=== PATIENT | female | born 1975 | race Caucasian/White ===

== ENCOUNTER 2017-07-30 | Emergency (ER) | payer MEDICARE ==
--- NOTE | 2017-07-30 01:10 | PDOC ---
History of Present Illness - General History Source: Patient Exam Limitations: No Limitations - History of Present Illness Initial Comments: 07/30/17 01:53 The patient is a 41-year-old female, with a significant past medical history of diabetes and colon cancer (in remission), who presents to the ED with right foot pain after hitting her foot against the couch today. Pts fourth and fifth digit appears to be bruised. She denies taking anything for pain. She denies having any other injuries or symptoms. Allergies: NKDA <Ilda Lobo - Last Filed: 07/30/17 01:53> <Caroline Huerta - Last Filed: 07/30/17 06:29> - General Stated Complaint: INJURY Time Seen by Provider: 07/30/17 01:10 Past History <Ilda Lobo - Last Filed: 07/30/17 01:53> - Past Medical History Anemia: No Asthma: No Cancer: Yes (COLON CANCER 2004) Cardiac Disorders: No CVA: No COPD: No CHF: No Dementia: No Diabetes: Yes GI Disorders: Yes (gastritis,gerd,gastroparesis syn..esophagitis,diaphragmatic hernia) Disorders: No HTN: No Hypercholesterolemia: Yes Liver Disease: Yes (non alcoholic fatty liver) Suicide Attempt (Hx): No Seizures: No Thyroid Disease: No - Surgical History Abdominal Surgery: Yes (RIGHT HEMICOLECTOMY) Appendectomy: No Cardiac Surgery: No Cholecystectomy: Yes Lung Surgery: No Neurologic Surgery: No Orthopedic Surgery: No - Immunization History Immunization Up to Date: No - Psycho/Social/Smoking Cessation Hx Anxiety: No Suicidal Ideation: No Smoking Status: No Smoking History: Never smoked Have you smoked in the past 12 months: No Number of Cigarettes Smoked Daily: 0 Hx Alcohol Use: No Drug/Substance Use Hx: No Substance Use Type: None Hx Substance Use Treatment: No <Caroline Huerta - Last Filed: 07/30/17 06:29> - Past Medical History Allergies/Adverse Reactions: Allergies Allergy/AdvReac Type Severity Reaction Status Date / Time shrimp Allergy Severe Swelling Verified 07/30/17 01:31 No Known Drug Allergies Allergy Verified 07/30/17 01:31 Home Medications: Ambulatory Orders Albuterol Sulfate Inhaler - [Ventolin Hfa Inhaler -] 1 - 2 inh PO QID 06/04/16 Albuterol Sulfate [Proair Respiclick] 90 mcg IH TID 06/04/16 Aspirin [ASA -] 81 mg PO DAILY 06/04/16 Fluconazole [Diflucan -] 100 mg PO DAILY 06/04/16 Gabapentin 100 mg PO TID 06/04/16 Hydrochlorothiazide 25 mg PO DAILY 06/04/16 Insulin Glulisine [Apidra Solostar] 100 unit SQ BID 06/04/16 Loratadine 10 mg PO DAILY 06/04/16 Niacin*ER* [Niaspan (Non-Formulary)*ER* -] 500 mg PO HS 06/04/16 Omeprazole 20 mg PO DAILY 06/04/16 Simvastatin 40 mg PO HS 06/04/16 Solifenacin Succinate [Vesicare -] 10 mg PO DAILY 06/04/16 Oxycodone HCl/Acetaminophen [Percocet 5/325 -] 1 tab PO Q6H #20 tablet MDD 4 08/07 Review of Systems - Review of Systems Able to Perform ROS?: Yes Comments:: 07/30/17 01:54 CONSTITUTIONAL: Absent: fever, no chills, no fatigue EYES: Absent: visual changes ENT: Absent: ear pain, no sore throat CARDIOVASCULAR: Absent: chest pain, no palpitations RESPIRATORY: Absent: cough, no SOB GI: Absent: abdominal pain, no nausea, no vomiting, no constipation, no diarrhea GENITOURINARY: Absent: dysuria, no frequency, no hematuria MUSKULOSKELETAL: Present: Right foot pain Absent: back pain, no arthralgia SKIN: Absent: rash NEURO: Absent: headache <Ilda Lobo - Last Filed: 07/30/17 01:53> *Physical Exam - Vital Signs Last Vital Signs Temp Pulse Resp BP Pulse Ox 98.0 F 79 20 118/88 100 07/30/17 01:34 07/30/17 01:34 07/30/17 01:34 07/30/17 01:34 07/30/17 01:34 - Physical Exam Comments: 07/30/17 01:55 GENERAL: Well-appearing, well-nourished. No apparent distress. HEENT: Normocephalic, atraumatic. PERRL, EOM intact. CARDIOVASCULAR: Normal S1, S2. Regular rate and rhythm. PULMONARY: Clear to auscultation bilaterally. ABDOMEN: Soft, non-distended, non-tender. EXTREMITIES: (+)Tenderness over third, fourth, and fifth metatarsals. SKIN: (+)Bruising over fourth and fifth metatarsals. Warm, dry. NEUROLOGICAL: No focal neurological deficits. <Ilda Lobo - Last Filed: 07/30/17 01:53> ED Treatment Course - Medications Given in the ED: ED Medications Discontinued Medications Generic Name Dose Route Start Last Admin Trade Name Lorraine PRN Reason Stop Dose Admin Acetaminophen 1,000 mg 07/30/17 01:46 07/30/17 01:52 Tylenol - PO 07/30/17 01:47 1,000 mg ONCE ONE Administration <Ilda Lobo - Last Filed: 07/30/17 01:53> Medical Decision Making - Medical Decision Making 07/30/17 06:27 Pt comes with right 4th and 5th toe hematoma and pain after banging her bare foot into a sofa leg. Pt is limping. No other complaints. XR demonstrates broken 5th toe. ?hairline fx of 5th metatarsal. Pt esther taped, placed in a splint and a hard shoe. FOllow with ortho. Motrin and percocet for pain. <Caroline Huerta - Last Filed: 07/30/17 06:29> *DC/Admit/Observation/Transfer - Attestations Scribe Attestion: 07/30/17 01:59 Documentation prepared by Ilda Lobo, acting as medical technologist prn for Caroline Huerta MD. <Ilda Lobo - Last Filed: 07/30/17 01:53> - Discharge Dispostion Admit: No <Caroline Huerta - Last Filed: 07/30/17 06:29> Diagnosis at time of Disposition: Toe fracture, right - Discharge Dispostion Disposition: HOME Condition at time of disposition: Stable - Prescriptions Prescriptions: Oxycodone HCl/Acetaminophen [Percocet 5/325 -] 1 tab PO Q6H #20 tablet MDD 4 - Referrals Referrals: Bear Boyer MD [Staff Physician] - - Patient Instructions Printed Discharge Instructions: DI for Toe Fracture - Post Discharge Activity Work/School Note: Back to Work
[2017-07-30 01:35] VITALS: BP 118/88; PULSE 79; TEMP 98; BMI 36.1
[2017-07-30] MEDS ORDERED: ACETAMINOPHEN 500 MG TABLET (FP) PO ONE (01:46)
[2017-07-30] MEDS ORDERED: ACETAMINOPHEN 325 MG TABLET (FP) ONE (01:50)
== END 2017-07-30 04:46 | disposition home or self-care (01) ==
LOC: JER
DX: S92.351A Displaced fracture of fifth metatarsal bone, right foot, initial encounter for closed fracture (principal); W22.03XA Walked into furniture, initial encounter; Y93.89 Activity, other specified; Y92.018 Other place in single-family (private) house as the place of occurrence of the external cause
CPT/HCPCS: 73630-TC-RT; 99282-25

== ENCOUNTER 2017-11-28 21:41 | Emergency (ER) | payer MEDICARE ==
[2017-11-28 21:51] VITALS: BP 139/80; PULSE 95; TEMP 98.3; BMI 34.2
[2017-11-28] MEDS ORDERED: SULFAMETHOXAZOLE/TRIMETHOPRIM 800MG/160MG D.S. TABLET PO ONE (22:07)
[2017-11-28] MEDS ORDERED: CEPHALEXIN MONOHYDRATE 500 MG CAPSULE (UD) PO ONE (22:07)
--- NOTE | 2017-11-28 22:07 | PDOC ---
History of Present Illness - General Chief Complaint: Wound Infection Stated Complaint: ABSCESS BOIL Time Seen by Provider: 11/28/17 21:59 History Source: Patient - History of Present Illness Initial Comments: 11/28/17 22:20 42-year-old female with no medical history complaining of a ruptured abscess to the right breast last evening. Patient states she noticed a pimple to her right breast 4 days ago which increased in size and redness. Patient denies fever, chills, nausea/vomiting, chest pain, shortness of breath. Patient states she noticed malodorous discharged this evening. Timing/Duration: other (x4d) Past History - Past Medical History Allergies/Adverse Reactions: Allergies Allergy/AdvReac Type Severity Reaction Status Date / Time shrimp Allergy Severe Swelling Verified 11/28/17 21:50 No Known Drug Allergies Allergy Verified 11/28/17 21:50 Home Medications: Ambulatory Orders Albuterol Sulfate [Proair Respiclick] 90 mcg IH TID PRN 06/04/16 Gabapentin 300 mg PO TID 06/04/16 Omeprazole 40 mg PO DAILY 06/04/16 Ibuprofen [Motrin -] 600 mg PO ASDIR 09/23/17 Insulin Degludec [Tresiba Flextouch U-200] 200 unit SQ DAILY 09/23/17 Insulin Glargine,Hum.rec.anlog [Lantus Solostar PEN -] 40 unit SQ DAILY Insulin Lispro [Humalog Kwikpen U-100] 100 unit SQ DAILY 09/23/17 [place]-3 Acid Ethyl Esters 1 gm PO DAILY 09/23/17 Cephalexin [Keflex] 500 mg PO TID #15 capsule 11/28/17 Liraglutide [Victoza -] 1.8 mg SQ DAILY@0700 11/28/17 Sulfamethoxazole/Trimethoprim [Bactrim Ds -] 1 tab PO BID #14 tablet 11/28/17 Anemia: No Asthma: Yes Cancer: Yes (COLON CANCER 2004) Cardiac Disorders: No CVA: No COPD: No CHF: No Dementia: No Diabetes: Yes GI Disorders: Yes (gastritis,gerd,gastroparesis syn..esophagitis,diaphragmatic hernia) Disorders: No HTN: No Hypercholesterolemia: Yes Liver Disease: Yes (non alcoholic fatty liver) Seizures: No Thyroid Disease: No - Surgical History Abdominal Surgery: Yes (RIGHT HEMICOLECTOMY) Appendectomy: No Cardiac Surgery: No Cholecystectomy: Yes Lung Surgery: No Neurologic Surgery: No Orthopedic Surgery: No - Immunization History Immunization Up to Date: No - Suicide/Smoking/Psychosocial Hx Smoking Status: No Smoking History: Never smoked Have you smoked in the past 12 months: No Number of Cigarettes Smoked Daily: 0 Hx Alcohol Use: No Drug/Substance Use Hx: No Substance Use Type: None Hx Substance Use Treatment: No Review of Systems - Review of Systems Able to Perform ROS?: Yes Comments:: 11/28/17 22:14 CONSTITUTIONAL: Absent: fever, chills, diaphoresis, generalized weakness, malaise, loss of appetite HEENT: Absent: rhinorrhea, nasal congestion, throat pain, throat swelling, difficulty swallowing, mouth swelling, ear pain, eye pain, visual Changes CARDIOVASCULAR: Absent: chest pain, loss of consciousness, palpitations, irregular heart rate, peripheral edema RESPIRATORY: Absent: cough, shortness of breath, dyspnea with exertion, orthopnea, wheezing, stridor, hemoptysis GASTROINTESTINAL: Absent: abdominal pain, abdominal distension, nausea, vomiting, diarrhea, constipation, melena, hematochezia GENITOURINARY: Absent: dysuria, frequency, urgency, hesitancy, hematuria, flank pain, genital pain MUSCULOSKELETAL: Absent: myalgia, arthralgia, joint swelling SKIN: Absent: rash, itching, pallor HEMATOLOGIC/IMMUNOLOGIC: Absent: easy bleeding, easy bruising, lymphadenopathy, frequent infections ENDOCRINE: Absent: unexplained weight gain, unexplained weight loss, heat intolerance, cold intolerance Is the patient limited Lebanese proficient: No *Physical Exam - Vital Signs Last Vital Signs Temp Pulse Resp BP Pulse Ox 98.3 F 95 H 18 139/80 98 11/28/17 21:50 11/28/17 21:50 11/28/17 21:50 11/28/17 21:50 11/28/17 21:50 - Physical Exam Comments: 11/28/17 22:14 GENERAL: Well developed, well nourished. Awake and alert. No acute distress. HEENT: Normocephalic, atraumatic. PERRLA, EOMI. No conjunctival pallor. Sclera are non- icteric. Moist mucous membranes. Oropharynx is clear. NECK: Supple. Full ROM. No JVD. Carotid pulses 2+ and symmetric, without bruits. No thyromegaly. No lymphadenopathy. Right breast: adjacent to 9 o'clock/ruptured 1cm abscess without lymphangitis +tender on palp CARDIOVASCULAR: Regular rate and rhythm. No murmurs, rubs, or gallops. Distal pulses are 2+ and symmetric. PULMONARY: No evidence of respiratory distress. Lungs clear to auscultation bilaterally. No wheezing, rales or rhonchi. ABDOMINAL: Soft. Non-tender. Non-distended. No rebound or guarding. No organomegaly. Normoactive bowel sounds. MUSCULOSKELETAL Normal range of motion at all joints. No bony deformities or tenderness. No CVA tenderness. SKIN: Warm and dry. Normal capillary refill. No rashes. No jaundice. *DC/Admit/Observation/Transfer Diagnosis at time of Disposition: Abscess - Discharge Dispostion Disposition: HOME Condition at time of disposition: Stable Admit: No - Prescriptions Prescriptions: Cephalexin [Keflex] 500 mg PO TID #15 capsule Sulfamethoxazole/Trimethoprim [Bactrim Ds -] 1 tab PO BID #14 tablet - Referrals Referrals: Caleb Patel MD [Primary Care Provider] - Cameron Herr MD [Staff Physician] - - Patient Instructions Printed Discharge Instructions: DI for Skin Abscess Additional Instructions: Warm compresses Take the Keflex and Bactrim DS Follow up with your physician and Dr. Herr [phone] Return to the ER for severe/persistent/worsening symptoms - Post Discharge Activity
[2017-11-28] MEDS ORDERED: CEPHALEXIN MONOHYDRATE 500 MG CAPSULE (UD) ONE (22:13)
[2017-11-28] MEDS ORDERED: SULFAMETHOXAZOLE/TRIMETHOPRIM 800MG/160MG D.S. TABLET ONE (22:13)
== END 2017-11-28 22:30 | disposition home or self-care (01) ==
LOC: JERFT 21:41
DX: N61.1 Abscess of the breast and nipple (principal); K76.0 Fatty (change of) liver, not elsewhere classified; E11.9 Type 2 diabetes mellitus without complications; Z79.4 Long term (current) use of insulin; Z87.19 Personal history of other diseases of the digestive system
CPT/HCPCS: 87070; 87186; 87205; 99281-25

== ENCOUNTER 2018-12-19 19:50 | Emergency (ER) | payer OTHER ==
--- NOTE | 2018-12-19 20:08 | PDOC ---
Rapid Medical Evaluation Chief Complaint: Wound Time Seen by Provider: 12/19/18 20:07 Medical Evaluation: Allergies Allergy/AdvReac Type Severity Reaction Status Date / Time shrimp Allergy Severe Swelling Verified 11/28/17 21:50 No Known Drug Allergies Allergy Verified 11/28/17 21:50 12/19/18 20:07 I have performed a brief in-person evaluation of this patient. The patient presents with a chief complaint of: L breast abscess for 3 days. No fever/chills Pertinent physical exam findings: L breast abscess. I have ordered a UCG The patient will proceed to the ED for further evaluation Discharge Disposition - Diagnosis Breast abscess - Referrals - Patient Instructions - Post Discharge Activity
[2018-12-19 20:09] VITALS: BP 127/81; PULSE 88; TEMP 98.3; BMI 33.0
== END 2018-12-19 20:45 | disposition left against medical advice (07) ==
LOC: JER 19:50
DX: N61.1 Abscess of the breast and nipple (principal)
CPT/HCPCS: 84703; 99281-25

== ENCOUNTER 2018-12-20 13:30 | Emergency (ER) | payer OTHER ==
[2018-12-20 13:47] VITALS: BP 124/80; PULSE 86; TEMP 98.1; BMI 32.2
--- NOTE | 2018-12-20 14:41 | PDOC ---
History of Present Illness - General Chief Complaint: Wound Stated Complaint: LEFT BREAST ABCESS Time Seen by Provider: 12/20/18 14:32 History Source: Patient Exam Limitations: No Limitations Past History - Past Medical History Allergies/Adverse Reactions: Allergies Allergy/AdvReac Type Severity Reaction Status Date / Time shrimp Allergy Severe Swelling Verified 12/20/18 13:33 No Known Drug Allergies Allergy Verified 12/20/18 13:34 Home Medications: Ambulatory Orders Biotin 300 mcg PO DAILY 12/20/18 Gabapentin 100 mg PO TID 12/20/18 Insulin (LOG) Aspart [NovoLOG -] 60 units SQ TID 12/20/18 Insulin Degludec [Tresiba Flextouch U-100] 150 units SQ DAILY 12/20/18 Liraglutide [Victoza -] 40 units SQ DAILY 12/20/18 Loratadine [Claritin] 10 mg PO DAILY 12/20/18 Anemia: No Asthma: Yes Cancer: Yes (COLON CANCER 2004) Cardiac Disorders: No CVA: No COPD: No CHF: No Dementia: No Diabetes: Yes GI Disorders: Yes (gastritis,gerd,gastroparesis syn..esophagitis,diaphragmatic hernia) Disorders: No HTN: No Hypercholesterolemia: Yes Liver Disease: Yes (non alcoholic fatty liver) Seizures: No Thyroid Disease: No - Surgical History Abdominal Surgery: Yes (RIGHT HEMICOLECTOMY) Appendectomy: No Cardiac Surgery: No Cholecystectomy: Yes Lung Surgery: No Neurologic Surgery: No Orthopedic Surgery: No - Immunization History Immunization Up to Date: No - Suicide/Smoking/Psychosocial Hx Smoking Status: No Smoking History: Never smoked Have you smoked in the past 12 months: No Number of Cigarettes Smoked Daily: 0 Information on smoking cessation initiated: No Hx Alcohol Use: No Drug/Substance Use Hx: No Substance Use Type: None Hx Substance Use Treatment: No *Physical Exam - Vital Signs Last Vital Signs Temp Pulse Resp BP Pulse Ox 98.1 F 86 16 124/80 98 12/20/18 13:31 12/20/18 13:31 12/20/18 13:31 12/20/18 13:31 12/20/18 13:31 Moderate Sedation - Procedure Monitoring Vital Signs: Procedure Monitoring Vital Signs Temperature 98.1 F 12/20/18 13:31 Pulse Rate 86 12/20/18 13:31 Respiratory Rate 16 12/20/18 13:31 Blood Pressure 124/80 12/20/18 13:31 O2 Sat by Pulse Oximetry (%) 98 12/20/18 13:31 *DC/Admit/Observation/Transfer - Discharge Dispostion Condition at time of disposition: Stable - Referrals - Patient Instructions - Post Discharge Activity
[2018-12-20] MEDS ORDERED: IBUPROFEN 600 MG TABLET (FP) PO ONE ×2 (14:42→15:00)
[2018-12-20 15:42] LABS: ACTIVATED PTT 16.4 SECONDS (25.2-36.5); HEMATOCRIT 47.4 % (32.4-45.2); HEMOGLOBIN 15.8 GM/dl (10.7-15.3); MCH 31.1 pg (25.7-33.7); MCHC 33.4 g/dl (32.0-36.0); MEAN CELL VOLUME 93.3 fl (80-96); MEAN PLT VOLUME 9.9 fl (7.5-11.1); PLATELET COUNT 265 K/MM3 (134-434); RBC 5.08 M/mm3 (3.60-5.2); RDW 11.4 % (11.6-15.6); WHITE BLOOD COUNT 10.4 K/mm3 (4.0-10.8)
--- NOTE | 2018-12-20 15:44 | PDOC ---
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 Per the patient, she stated she had drainage of blood and pus. Per the patient, she states that her BG has been " out of control" with her most recent BG on 12/19/2018 mid 500s. She states she has been using her insulin intermittently. Per the patient, she denies having fevers, chills, and breast discharge and inflammation. Past History - Past Medical History Allergies/Adverse Reactions: Allergies Allergy/AdvReac Type Severity Reaction Status Date / Time shrimp Allergy Severe Swelling Verified 12/20/18 13:33 No Known Drug Allergies Allergy Verified 12/20/18 13:34 Home Medications: Ambulatory Orders Biotin 300 mcg PO DAILY 12/20/18 Cephalexin Monohydrate [Keflex -] 500 mg PO Q8H #21 capsule 12/20/18 Gabapentin 100 mg PO TID 12/20/18 Insulin (LOG) Aspart [NovoLOG -] 60 units SQ TID 12/20/18 Insulin Degludec [Tresiba Flextouch U-100] 150 units SQ DAILY 12/20/18 Liraglutide [Victoza -] 40 units SQ DAILY 12/20/18 Loratadine [Claritin] 10 mg PO DAILY 12/20/18 Anemia: No Asthma: Yes Cancer: Yes (COLON CANCER 2004) Cardiac Disorders: No CVA: No COPD: No CHF: No Dementia: No Diabetes: Yes GI Disorders: Yes (gastritis,gerd,gastroparesis syn..esophagitis,diaphragmatic hernia) Disorders: No HTN: No Hypercholesterolemia: Yes Liver Disease: Yes (non alcoholic fatty liver) Seizures: No Thyroid Disease: No - Surgical History Abdominal Surgery: Yes (RIGHT HEMICOLECTOMY) Appendectomy: No Cardiac Surgery: No Cholecystectomy: Yes Lung Surgery: No Neurologic Surgery: No Orthopedic Surgery: No - Immunization History Immunization Up to Date: No - Suicide/Smoking/Psychosocial Hx Smoking Status: No Smoking History: Never smoked Have you smoked in the past 12 months: No Number of Cigarettes Smoked Daily: 0 Information on smoking cessation initiated: No Hx Alcohol Use: No Drug/Substance Use Hx: No Substance Use Type: None Hx Substance Use Treatment: No Review of Systems - Review of Systems Able to Perform ROS?: Yes Is the patient limited Chinese proficient: No Constitutional: No: Chills, Diaphoresis, Fever, Weakness HEENTM: No: Eye Pain, Recent change in vision, Ear Pain, Nose Pain, Throat Pain , Mouth Pain Respiratory: No: Cough, Shortness of Breath, SOB with Exertion, Hemoptysis Cardiac (ROS): No: Lightheadedness, Palpitations, Syncope ABD/GI: No: Constipated, Diarrhea, Nausea, Rectal Bleeding, Vomiting, Tarry Stools : No: Dysuria, Discharge, Hematuria, Urgency Musculoskeletal: No: Back Pain, Joint Pain, Neck Pain Integumentary: Yes: Lesions (abscess on left breast). No: Rash Neurological: No: Headache, Numbness, Tingling, Tremors, Ataxia, Dizziness Psychiatric: No: Change in Appetite Endocrine: No: Unexplained Weight Gain Hematologic/Lymphatic: No: Anemia *Physical Exam - Vital Signs Last Vital Signs Temp Pulse Resp BP Pulse Ox 98.1 F 86 16 124/80 98 12/20/18 13:31 12/20/18 13:31 12/20/18 13:31 12/20/18 13:31 12/20/18 13:31 - Physical Exam General Appearance: Yes: Nourished, Appropriately Dressed. No: Apparent Distress, Intoxicated HEENT: positive: EOMI, WYATT, Normal Voice, Pharynx Normal, Hearing Grossly Normal. negative: Pale Conjunctivae, Scleral Icterus (R), Scleral Icterus (L), Muffled/Hoarse voice, Pharyngeal Erythema, Tonsillar Exudate, Tonsillar Erythema , Nasal Congestion, Rhinorrhea, Sinus Tenderness, Excessive drooling Neck: positive: Trachea midline. negative: Tender, Lymphadenopathy (R), Lymphadenopathy (L), Tender lateral, Tender midline Respiratory/Chest: positive: Lungs Clear, Normal Breath Sounds. negative: Chest Tender, Respiratory Distress, Accessory Muscle Use, Crackles, Rales, Rhonchi, Stridor, Wheezing Cardiovascular: positive: Regular Rhythm, Regular Rate, S1, S2. negative: Systolic Murmur Gastrointestinal/Abdominal: positive: Normal Bowel Sounds, Flat, Soft. negative : Tender Lymphatic: negative: Adenopathy Musculoskeletal: positive: Normal Inspection. negative: CVA Tenderness, Vertebral Tenderness Extremity: positive: Normal Capillary Refill, Normal Inspection, Normal Range of Motion. negative: Tender Integumentary: positive: Dry, Warm, Other (4x3 cm abscess located at the 3' oclock position left breast lateral. ) Neurologic: positive: chemistry technologist II-XII NML intact, Fully Oriented, Alert, Normal Mood/ Affect, Normal Response, Motor Strength 5/5. negative: EOM Palsy, Facial Droop , Sensory Deficit Moderate Sedation - Procedure Monitoring Vital Signs: Procedure Monitoring Vital Signs Temperature 98.1 F 12/20/18 13:31 Pulse Rate 86 12/20/18 13:31 Respiratory Rate 16 12/20/18 13:31 Blood Pressure 124/80 12/20/18 13:31 O2 Sat by Pulse Oximetry (%) 98 12/20/18 13:31 Procedures - Incision and Drainage I&D Site: Left: Other (3 o clock lateral breast region with Ashikari's blessing) Betadine cleansed: No (used chloraprep) Anesthesia: 1% Lidocaine Volume(ml): 4 Blade Size: 11 Attempts: 1 Iodinated Packin in Plain Packing: Yes Complications: none Dressing: Yes ED Treatment Course - LABORATORY CBC & Chemistry Diagram: 12/20/18 14:58 12/20/18 18:40 - RADIOLOGY Radiology Studies Ordered: Category Date Time Status BREAST US LEFT LIMITED [US] Stat Ultrasound 12/20/18 14:42 Ordered Medical Decision Making - Medical Decision Making 43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 Initial vitals: Initial Vital Signs Temp Pulse Resp BP Pulse Ox 98.1 F 86 16 124/80 98 12/20/18 13:31 12/20/18 13:31 12/20/18 13:31 12/20/18 13:31 12/20/18 13:31 Work up ddx: abscess vs cellulitis. POCUS showed a 1x1.75 cm abscess without irregular borders. cbc, cmp ordered to assess BG, WBC count. also PT/INR prior to I&D. Laboratory Tests 12/20/18 12/20/18 12/20/18 14:58 14:58 15:58 WBC 10.4 RBC 5.08 Hgb 15.8 H Hct 47.4 H MCV 93.3 MCH 31.1 MCHC 33.4 RDW 11.4 L Plt Count 265 MPV 9.9 Absolute Neuts (auto) 7.1 Neutrophils % No Result Required. Neutrophils % (Manual) 79.0 Band Neutrophils % 2.0 Lymphocytes % No Result Required. Lymphocytes % (Manual) 17.0 Monocytes % (Manual) 2 L Platelet Estimate Adequate Platelet Comment Few giants platelets PT with INR 10.5 INR 0.94 L PTT (Actin FS) 16.4 L Sodium 132 L Potassium 4.6 Chloride 95 L Carbon Dioxide 26 Anion Gap 11 BUN 13 Creatinine 0.7 Creat Clearance w eGFR > 60 Random Glucose 447 H* Calcium 9.5 Total Bilirubin 0.5 AST 79 H ALT 81 H Alkaline Phosphatase 275 H Total Protein 7.3 Albumin 3.7 12/20/18 18:40 WBC RBC Hgb Hct MCV MCH MCHC RDW Plt Count MPV Absolute Neuts (auto) Neutrophils % Neutrophils % (Manual) Band Neutrophils % Lymphocytes % Lymphocytes % (Manual) Monocytes % (Manual) Platelet Estimate Platelet Comment PT with INR INR PTT (Actin FS) Sodium Potassium Chloride Carbon Dioxide Anion Gap BUN Creatinine Creat Clearance w eGFR Random Glucose 333 H* Calcium Total Bilirubin AST ALT Alkaline Phosphatase Total Protein Albumin 12/20/18 18:10 Dr. barger came to see the patient and stated that it was fine for us to do the ID and that he will follow up with her at her appointment this Tuesday. patient has known fatty liver disease. patient's BG was elevated and was given 5 units of insulin along with 1 L NS. Patient was given tylenol for pain control. Refer to ID note on procedure. patient tolerated it well. Dispo: Discharge *DC/Admit/Observation/Transfer Diagnosis at time of Disposition: Abscess, Hyperglycemia - Discharge Dispostion Disposition: HOME Condition at time of disposition: Stable - Prescriptions Prescriptions: Cephalexin Monohydrate [Keflex -] 500 mg PO Q8H #21 capsule - Referrals Referrals: Cameron Barger MD [Staff Physician] - - Patient Instructions Printed Discharge Instructions: DI for Diabetes Type 2, DI for Wound Infection Additional Instructions: you were seen in the emergency department for the abscess and hyperglycemia. we treated you and gave you insulin, fluids, and antibiotics after the procedure. please keep the area dry and follow up with Dr. Barger this Tuesday. it is very important to do so. please follow up with your primary medical doctor within 1 week after discharge. please also follow up with an vp human resources that is referred to you in this discharge packet. please take the antibiotics as prescribed. please take tylenol for pain control as directed on label. please return to the emergency department if you develop fevers, streaking to the shoulder, chest pain, nausea and vomiting, and worsening pain. thank you. Print Language: ITALIAN - Post Discharge Activity
[2018-12-20 15:46] LABS: INR 0.94 (0.82-1.09); PROTHROMBIN TIME (PATIENT) 10.5 SEC (10.2-13.0)
[2018-12-20 16:42] LABS: ALBUMIN 3.7 g/dl (3.4-5.0); ALK PHOS 275 U/L (45-117); ANION GAP 11 MMOL/L (8-16); BILIRUBIN,TOTAL 0.5 mg/dl (0.2-1); BLOOD UREA NITROGEN 13 mg/dl (7-18); CALCIUM 9.5 mg/dl (8.5-10); CHLORIDE 95 mmol/L (98-107); CO2 26 mmol/L (21-32); CREATININE 0.7 mg/dl (0.55-1.3); POTASSIUM 4.6 mmol/L (3.5-5.1); SGOT/AST 79 U/L (15-37); SGPT/ALT 81 U/L (13-61); SODIUM 132 mmol/L (136-145); TOT PROT 7.3 g/dl (6.4-8.2)
[2018-12-20 16:51] LABS: GLUCOSE,RANDOM 447 mg/dl (74-106)
[2018-12-20] MEDS ORDERED: SODIUM CHLORIDE 1,000 ML IV STA (17:06)
[2018-12-20] MEDS ORDERED: ACETAMINOPHEN 325 MG TABLET (FP) PO ONE (17:07)
[2018-12-20] MEDS ORDERED: INSULIN REGULAR HUMAN 100 UNITS/ML *VIAL SQ ONE (17:07)
[2018-12-20] MEDS ORDERED: CEPHALEXIN MONOHYDRATE 500 MG CAPSULE (UD) PO ONE (17:07)
--- NOTE | 2018-12-20 17:12 | PDOC ---
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 no fevers. +drainage yesterday no known trauma. has had history of breast abscess s/p drainage, last in 01/[address] Rollins. - Physicial Exam PE: 12/20/18 17:13 NAD, well appearing. neck supple. RRR, lungs clear. abdomen soft and nontender. WWP. +left lateral upper breast area of erythema, fluctuance and tenderness, correlating with abscess/cellulitis. no active drainage. no crepitus 12/20/18 17:14 - Medical Decision Making 12/20/18 17:14 hpi as documented VS wnl. no fever labs and lytes wnl. +glucose elevated 447, known diabetic and poor control. mild pseudohyponatremia 2/2 glucose abnormal IVF and insulin 5 units x1, FOR HYPERGLYCEMIA. rechecked, BS normalizing. does not appear in DKA or septic. left breast abscess confirmed on US. breast surgeon consulted, spoke directly with Dr Rollins, who came to see bedside I&D performed, copious purulence expelled, iodoform packing placed placed wound culture obtained. rx keflex x 1 week course for abscess/cellulitis. f/u Dr Rollins in 2 days for wound reeval/abscess pt verbalizes understanding of instructions, return precautions and glycemic control/infection control. 12/20/18 17:32 12/20/18 18:11 12/22/18 07:13 Heart Score/ECG Review - ECG Impressions Normal ECG: No Comment:: 12/20/18 18:16 EKG normal sinus rhythm, no interval abnormalities, narrow QRS, ST and T wave segments and morphology normal. Nonspecific T wave abnormalities, unchanged from prior
[2018-12-20] MEDS ORDERED: CEPHALEXIN MONOHYDRATE 500 MG CAPSULE (UD) ONE (17:20)
[2018-12-20] MEDS ORDERED: ACETAMINOPHEN 325 MG TABLET (FP) ONE (17:20)
[2018-12-20] MEDS ORDERED: INSULIN REGULAR HUMAN 100 UNITS/ML *VIAL ONE (17:22)
[2018-12-20 18:17] LABS: PLATELET ESTIMATE ADEQUATE
[2018-12-20] MEDS ORDERED: HEMOQUE TEST 1 EACH EACH ONE ×2 (18:28→18:36)
--- NOTE | 2018-12-20 19:18 | PDOC ---
*Physical Exam - Vital Signs Last Vital Signs Temp Pulse Resp BP Pulse Ox 98.1 F 86 16 124/80 98 12/20/18 13:31 12/20/18 13:31 12/20/18 13:31 12/20/18 13:31 12/20/18 13:31 ED Treatment Course - LABORATORY CBC & Chemistry Diagram: 12/20/18 14:58 12/20/18 18:40 - ADDITIONAL ORDERS Additional order review: Laboratory Results 12/20/18 12/20/18 12/20/18 18:40 15:58 14:58 PT with INR 10.5 INR 0.94 L PTT (Actin FS) 16.4 L Sodium 132 L Potassium 4.6 Chloride 95 L Carbon Dioxide 26 Anion Gap 11 BUN 13 Creatinine 0.7 Creat Clearance w eGFR > 60 Random Glucose 333 H* 447 H* Calcium 9.5 Total Bilirubin 0.5 AST 79 H ALT 81 H Alkaline Phosphatase 275 H Total Protein 7.3 Albumin 3.7 12/20/18 14:58 RBC 5.08 MCV 93.3 MCHC 33.4 RDW 11.4 L MPV 9.9 Neutrophils % No Result Required. Lymphocytes % No Result Required. - Medications Given in the ED: ED Medications Discontinued Medications Generic Name Dose Route Start Last Admin Trade Name Freq PRN Reason Stop Dose Admin Acetaminophen 975 mg 12/20/18 17:07 12/20/18 17:25 Tylenol - PO 12/20/18 17:08 975 mg ONCE ONE Administration Cephalexin HCl 500 mg 12/20/18 17:07 12/20/18 17:25 Keflex - PO 12/20/18 17:08 500 mg ONCE ONE Administration Sodium Chloride 1,000 mls @ 1,000 mls/hr 12/20/18 17:06 12/20/18 17:31 Normal Saline - IV 12/20/18 18:05 1,000 mls/hr ASDIR STA Administration Ibuprofen 600 mg 12/20/18 14:42 12/20/18 15:01 Motrin - PO 12/20/18 14:43 600 mg ONCE ONE Administration Insulin Human Regular 5 units 12/20/18 17:07 12/20/18 17:25 Novolin R Vial *For Ivpush Or Iv Drip Only* SQ 12/20/18 17:08 5 units ONCE ONE Administration Medical Decision Making - Medical Decision Making 12/20/18 19:23 serum glucose after Insulin/ IV hydration is 333, still elevated but substantially lower than pre-treatment. Plan of continued FS monitoring, hydration, antibiotics and followup with Dr Herr on Tuesday discussed with the patient. She was advised to return to the ER if she notes rise in FS value,fever or increased pain/edema/drainage of wound *DC/Admit/Observation/Transfer Diagnosis at time of Disposition: Abscess, Hyperglycemia - Discharge Dispostion Disposition: HOME Condition at time of disposition: Stable - Prescriptions Prescriptions: Cephalexin Monohydrate [Keflex -] 500 mg PO Q8H #21 capsule - Referrals Referrals: Cameron Herr MD [Staff Physician] - - Patient Instructions Printed Discharge Instructions: DI for Diabetes Type 2, DI for Wound Infection Additional Instructions: you were seen in the emergency department for the abscess and hyperglycemia. we treated you and gave you insulin, fluids, and antibiotics after the procedure. please keep the area dry and follow up with Dr. Herr this Tuesday. it is very important to do so. please follow up with your primary medical doctor within 1 week after discharge. please also follow up with an marketing program manager that is referred to you in this discharge packet. please take the antibiotics as prescribed. please take tylenol for pain control as directed on label. please return to the emergency department if you develop fevers, streaking to the shoulder, chest pain, nausea and vomiting, and worsening pain. thank you. Print Language: SWAZI - Post Discharge Activity
--- NOTE | 2018-12-21 14:17 | EKG ---
Test Reason : Blood Pressure : / mmHG Vent. Rate : 069 BPM Atrial Rate : 069 BPM P-R Int : 158 ms QRS Dur : 076 ms QT Int : 402 ms P-R-T Axes : 047 023 026 degrees QTc Int : 430 ms NORMAL SINUS RHYTHM POSSIBLE LEFT ATRIAL ENLARGEMENT BORDERLINE ECG WHEN COMPARED WITH ECG OF 18-APR-2013 15:33, VENT. RATE HAS DECREASED BY 45 BPM Confirmed by JAMMIE GAMBLE MD ([id number]) on 12/21/2018 2:17:04 PM Referred By: DR PRITCHARD Confirmed By:JAMMIE GAMBLE MD
== END 2018-12-20 19:28 | disposition home or self-care (01) ==
LOC: FER 13:30
PROC: 0H9UXZZ (ICD-10-PCS; principal; 2018-12-20)
PROC: 3E013VG Introduction of Insulin into Subcutaneous Tissue, Percutaneous Approach (ICD-10-PCS; 2018-12-20)
PROC: 3E0337Z Introduction of Electrolytic and Water Balance Substance into Peripheral Vein, Percutaneous Approach (ICD-10-PCS; 2018-12-20)
DX: N61.1 Abscess of the breast and nipple (principal); E11.65 Type 2 diabetes mellitus with hyperglycemia; K76.0 Fatty (change of) liver, not elsewhere classified
CPT/HCPCS: 10060; 36415; 76642-TC-LT; 80053; 82947; 85025; 85610; 85730; 87070; 87186; 87205; 93005; 96361; 96372; 99283-25; J7030

== ENCOUNTER 2019-05-20 14:50 | Emergency (ER) | payer MEDICARE, OTHER ==
[2019-05-20 15:07] VITALS: BP 144/93; PULSE 88; TEMP 98.6; BMI 30.2
[2019-05-20] MEDS ORDERED: CEPHALEXIN MONOHYDRATE 500 MG CAPSULE (UD) ONE (15:34)
[2019-05-20] MEDS ORDERED: SULFAMETHOXAZOLE/TRIMETHOPRIM 800MG/160MG D.S. TABLET PO ONE (15:34)
[2019-05-20] MEDS ORDERED: SULFAMETHOXAZOLE/TRIMETHOPRIM 800MG/160MG D.S. TABLET ONE (15:34)
[2019-05-20] MEDS ORDERED: CEPHALEXIN MONOHYDRATE 500 MG CAPSULE (UD) PO ONE (15:34)
--- NOTE | 2019-05-20 15:41 | PDOC ---
Documentation entered by Stephanie Moy SCRIBE, acting as scribe for Lori Kemp MD. Lori Kemp MD: This documentation has been prepared by the Farzaneh luna Xhesika, SCRIBE, under my direction and personally reviewed by me in its entirety. I confirm that the documentation accurately reflects all work, treatment, procedures, and medical decision making performed by me. History of Present Illness - General Chief Complaint: Pain Stated Complaint: ABCESS History Source: Patient, Family Exam Limitations: No Limitations - History of Present Illness Initial Comments: 05/20/19 15:41 The patient is a 43 year old female, with a significant PMH of abscess, IDDM, HLD, and Colon Ca who presents to the emergency department with an abdominal wall abscess. As per daughter, the abscess started a week ago, however, the patient has been stressed due to her son getting into a car accident and was unable to get it evaluated. As per daughter, the patient has been endorsing chills and pain to the area, secondary to her abscess. The patient denies chest pain, shortness of breath, headache and dizziness. Denies fever, chills, nausea, vomiting, diarrhea and constipation. Denies dysuria, frequency, urgency and hematuria. Allergies: NKA, NKDA Past History - Past Medical History Allergies/Adverse Reactions: Allergies Allergy/AdvReac Type Severity Reaction Status Date / Time shrimp Allergy Severe Swelling Verified 05/20/19 14:51 No Known Drug Allergies Allergy Verified 05/20/19 14:51 Home Medications: Ambulatory Orders Biotin 300 mcg PO DAILY 12/20/18 Gabapentin 100 mg PO TID 12/20/18 Insulin (LOG) Aspart [NovoLOG -] 60 units SQ TID 12/20/18 Insulin Degludec [Tresiba Flextouch U-100] 150 units SQ DAILY 12/20/18 Liraglutide [Victoza -] 40 units SQ DAILY 12/20/18 Loratadine [Claritin] 10 mg PO DAILY 12/20/18 Cephalexin [Keflex] 500 mg PO TID #21 capsule 05/20/19 Sulfamethoxazole/Trimethoprim [Bactrim Ds -] 1 tab PO BID #14 tablet 05/20/19 Anemia: No Asthma: Yes Cancer: Yes (COLON CANCER 2004) Cardiac Disorders: No CVA: No COPD: No CHF: No Dementia: No Diabetes: Yes GI Disorders: Yes (gastritis,gerd,gastroparesis syn..esophagitis,diaphragmatic hernia) Disorders: No HTN: No Hypercholesterolemia: Yes Liver Disease: Yes (non alcoholic fatty liver) Seizures: No Thyroid Disease: No - Surgical History Abdominal Surgery: Yes (RIGHT HEMICOLECTOMY) Appendectomy: No Cardiac Surgery: No Cholecystectomy: Yes Lung Surgery: No Neurologic Surgery: No Orthopedic Surgery: No - Immunization History Immunization Up to Date: No - Suicide/Smoking/Psychosocial Hx Smoking Status: No Smoking History: Never smoked Have you smoked in the past 12 months: No Number of Cigarettes Smoked Daily: 0 Information on smoking cessation initiated: No Hx Alcohol Use: No Drug/Substance Use Hx: No Substance Use Type: None Hx Substance Use Treatment: No Review of Systems - Review of Systems Able to Perform ROS?: Yes Comments:: 05/20/19 15:41 GENERAL/CONSTITUTIONAL: No fever or chills. No weakness. HEAD, EYES, EARS, NOSE AND THROAT: No change in vision. No ear pain or discharge. No sore throat. CARDIOVASCULAR: No chest pain or shortness of breath. RESPIRATORY: No cough, wheezing, or hemoptysis. GASTROINTESTINAL: No nausea, vomiting, diarrhea or constipation. GENITOURINARY: No dysuria, frequency, or change in urination. MUSCULOSKELETAL:(+) abdominal wall abscess. No joint or muscle swelling or pain. No neck or back pain. SKIN: No rash NEUROLOGIC: No headache, vertigo, loss of consciousness, or change in strength/ sensation. ENDOCRINE: No increased thirst. No abnormal weight change. HEMATOLOGIC/LYMPHATIC: No anemia, easy bleeding, or history of blood clots. ALLERGIC/IMMUNOLOGIC: No hives or skin allergy. *Physical Exam - Vital Signs Last Vital Signs Temp Pulse Resp BP Pulse Ox 98.6 F 88 20 144/93 100 05/20/19 14:51 05/20/19 14:51 05/20/19 14:51 05/20/19 14:51 05/20/19 14:51 - Physical Exam Comments: 05/20/19 15:35 Awake alert no acute distress lungs are clear bilaterally heart is regular without any murmurs rubs or gallops abdomen is soft and tender on the left periumbilical area. Skin there is a noted erythematous and indurated area with central fluctuance noted just in the 3 o'clock position lateral to the umbilicus. There is fluctuance that is extremely tender to touch. Extremities are otherwise warm and well-perfused. Your erythema is limited to a 1 inch circumferential area. Neurologically patient is awake alert in no acute distress Medical Decision Making - Medical Decision Making 05/20/19 15:36 43-year-old female history of diabetes and history of prior abscesses here with an abdominal wall abscess. Plan to I&D and treat with oral antibiotics. Focus ED soft tissue ultrasound was performed of the abdominal wall. Indication evaluate for abscess. Linear probe was used to [place] the area of induration and erythema on the left lower anterior abdominal wall. There was a approximate 2 x 3 cm area of hypoechoic fluid with minimal surrounding cobblestoning. Impression: 2 x 3 cm abscess just below the skin surface I&D was performed of the abscess 3 mL of purulence was expressed. Wound culture was obtained and sent. Patient was given 1 dose of Bactrim and Keflex here in the ED. Packing was placed to the depth of the wound. Will be discharged home to follow-up in 48 hours for wound check and packing removal *DC/Admit/Observation/Transfer Diagnosis at time of Disposition: Abscess - Discharge Dispostion Disposition: HOME Condition at time of disposition: Improved Decision to Admit order: No - Prescriptions Prescriptions: Cephalexin [Keflex] 500 mg PO TID #21 capsule Sulfamethoxazole/Trimethoprim [Bactrim Ds -] 1 tab PO BID #14 tablet - Referrals - Patient Instructions Printed Discharge Instructions: Incision and Drainage of a Skin Abscess Additional Instructions: You were treated today for an abscess on your abdominal wall. You had an incision and drainage performed today. Packing was placed in your wound. It will need to be removed in 48 hours. you should return to the emergency room in 48 hours for a repeat wound check and packing removal. Return sooner for worsening redness swelling high fevers vomiting or any concerns. you will need to take antibiotics including Bactrim 1 tablet twice daily for 1 week. In addition you should take Keflex 500 mg 3 times daily for 1 week. Continue to take your diabetes medication return for any problems or concerns - Post Discharge Activity
[2019-05-20] MEDS ORDERED: ACETAMINOPHEN 500 MG TABLET (FP) ONE (15:42)
== END 2019-05-20 15:55 | disposition home or self-care (01) ==
LOC: FER 14:50
DX: L02.211 Cutaneous abscess of abdominal wall (principal); E11.9 Type 2 diabetes mellitus without complications; E78.00 Pure hypercholesterolemia, unspecified; K21.9 Gastro-esophageal reflux disease without esophagitis; K76.0 Fatty (change of) liver, not elsewhere classified
CPT/HCPCS: 87070; 87186; 87205; 99282-25

== ENCOUNTER 2019-05-22 12:21 | Inpatient (IN) | payer MEDICARE, OTHER ==
[2019-05-22] MEDS ORDERED: DALBAVANCIN HCL 1,500 MG in DEXTROSE 5%-WATER - 500 ML IVPB ONE (12:44)
[2019-05-22] MEDS ORDERED: AMPICILLIN NA/SULBACTAM NA 3 GM in SODIUM CHLORIDE 100 ML IVPB ONE (12:46)
--- NOTE | 2019-05-22 12:58 | PDOC ---
History of Present Illness - General Chief Complaint: Revisit,Wound Recheck Stated Complaint: WOUND REVISIT Time Seen by Provider: 05/22/19 12:23 History Source: Patient, Old Records Exam Limitations: No Limitations - History of Present Illness Initial Comments: 05/22/19 12:54 43y/o F IDDM with h/o abscesses presents for wound check of abdominal wall abscess drained 2d ago. Abscess began about 1 week ago, seen here without systemic symptoms, noted to have abdominal wall abscess lateral to umbilicus with 1cm surrounding cellulitis. Abscess I+D and discharged on bactrim/keflex, which patient took x3 doses. Presents now with improved pain scale locally, but with report of increasing redness to the abdomen and chills yesterday. no measured fever, no pus or blood. Blood sugar at baseline circa 400 without sxs of hyperglycemia or dka. Past History - Past Medical History Allergies/Adverse Reactions: Allergies Allergy/AdvReac Type Severity Reaction Status Date / Time shrimp Allergy Severe Swelling Verified 05/22/19 12:23 No Known Drug Allergies Allergy Verified 05/22/19 12:23 Home Medications: Ambulatory Orders Biotin 300 mcg PO DAILY 12/20/18 Gabapentin 100 mg PO TID 12/20/18 Insulin (LOG) Aspart [NovoLOG -] 60 units SQ TID 12/20/18 Insulin Degludec [Tresiba Flextouch U-100] 150 units SQ DAILY 12/20/18 Liraglutide [Victoza -] 40 units SQ DAILY 12/20/18 Loratadine [Claritin] 10 mg PO DAILY 12/20/18 Cephalexin [Keflex] 500 mg PO TID #21 capsule 05/20/19 Sulfamethoxazole/Trimethoprim [Bactrim Ds -] 1 tab PO BID #14 tablet 05/20/19 Anemia: No Asthma: Yes Cancer: Yes (COLON CANCER 2004) Cardiac Disorders: No CVA: No COPD: No CHF: No Dementia: No Diabetes: Yes GI Disorders: Yes (gastritis,gerd,gastroparesis syn..esophagitis,diaphragmatic hernia) Disorders: No HTN: No Hypercholesterolemia: Yes Liver Disease: Yes (non alcoholic fatty liver) Seizures: No Thyroid Disease: No - Surgical History Abdominal Surgery: Yes (RIGHT HEMICOLECTOMY) Appendectomy: No Cardiac Surgery: No Cholecystectomy: Yes Lung Surgery: No Neurologic Surgery: No Orthopedic Surgery: No - Immunization History Immunization Up to Date: Yes - Suicide/Smoking/Psychosocial Hx Smoking Status: No Smoking History: Never smoked Have you smoked in the past 12 months: No Number of Cigarettes Smoked Daily: 0 Information on smoking cessation initiated: No Hx Alcohol Use: No Drug/Substance Use Hx: No Substance Use Type: None Hx Substance Use Treatment: No Review of Systems - Review of Systems Constitutional: Yes: Chills. No: Fever Respiratory: No: Cough, Shortness of Breath Cardiac (ROS): No: Chest Pain ABD/GI: No: Constipated, Diarrhea, Vomiting : No: Dysuria, Frequency Integumentary: Yes: See HPI Neurological: No: Headache Endocrine: No: Increased Thirst, Increased Urine, Unexplained Weight Gain, Unexplained Weight Loss All Other Systems: Reviewed and Negative *Physical Exam - Vital Signs Last Vital Signs Temp Pulse Resp BP Pulse Ox 98.4 F 84 20 126/87 100 05/22/19 12:22 05/22/19 12:22 05/22/19 12:22 05/22/19 12:22 05/22/19 12:22 - Physical Exam Comments: 05/22/19 13:04 vital signs normal, afebrile GENERAL: The patient is awake, alert, and fully oriented, in no acute distress. HEAD: Normal with no signs of trauma. EYES: PERRL, EOMI, sclera anicteric, conjunctiva clear with no pallor. ENT: oropharynx clear. Moist mucous membranes. NECK: Normal range of motion, supple without lymphadenopathy, JVD, or masses. LUNGS: Breath sounds equal, clear to auscultation bilaterally. No wheeze/ crackles. HEART: Regular rate and rhythm, normal S1 and S2 without murmur or rub. ABDOMEN: Skin: well healing abscess site with clean incision and base of cavity without pus/bleeding. There is about 6-8cm of surrounding cellulitis/warmth without induration. Otherwise soft/nontender/nondistended. BS wnl. No guarding or rebound. No palpable masses. No hepatosplenomegaly. EXTREMITIES: Normal range of motion, no edema. 2+ distal pulses. No cords, erythema, or tenderness. NEUROLOGICAL: Cranial nerves II through XII grossly intact. Normal speech, normal gait. PSYCH: Normal mood, normal affect. SKIN: See above. ED Treatment Course - LABORATORY CBC & Chemistry Diagram: 05/22/19 13:21 05/22/19 13:21 Medical Decision Making - Medical Decision Making 05/22/19 13:08 43y/o F poorly controlled IDDM with h/o abscess presents for wound check of abdominal wall abscess s/p I+D 2 days ago. abscess improved but cellulitis seems to have worsened compared to prior note. chills but no measured fever and normal vital signs here not suggestive of bacteremia/SIRS. Prior culture grew gram + cocci in clusters and today with prelim of nlfgnb. check cbc/chem will expand g+ coverage and include gn coverage. discuss with ID. 05/22/19 14:03 no leukocytosis, normal diff. hyperglycemia of 401 but normal AG. discussed with ID, recommend admission and IV abx given poorly controlled diabetic and worsening cellulitis despite outpt abx regimen vanc/zosyn admission 05/22/19 14:47 accepted for admission by Dr. Ware, signout given to FAINA Mcclain *DC/Admit/Observation/Transfer Diagnosis at time of Disposition: Abscess, Abdominal wall cellulitis, Hyperglycemia - Discharge Dispostion Condition at time of disposition: Stable Decision to Admit order: Yes - Referrals - Patient Instructions - Post Discharge Activity
[2019-05-22] MEDS ORDERED: PIPERACILLIN/TAZOB 4.5 GM 4.5 GM in DEXTROSE 5%-WATER 100 ML IVPB ONE (13:38)
[2019-05-22 13:44] LABS: BASO % 0.4 % (0-2.0); EOS % 0.3 % (0-4.5); HEMATOCRIT 44.5 % (32.4-45.2); HEMOGLOBIN 14.9 GM/dl (10.7-15.3); LYMPH % 23.2 % (8-40); MCH 31.5 pg (25.7-33.7); MCHC 33.5 g/dl (32.0-36.0); MEAN CELL VOLUME 94.1 fl (80-96); MONO % 5.3 % (3.8-10.2); NEUT % 70.8 % (42.8-82.8); PLATELET COUNT 222 K/MM3 (134-434); RBC 4.73 M/mm3 (3.60-5.2); RDW 11.3 % (11.6-15.6); WHITE BLOOD COUNT 9.5 K/mm3 (4.0-10.8)
[2019-05-22 13:47] LABS: ALBUMIN 3.5 g/dl (3.4-5.0); BILIRUBIN,TOTAL 0.7 mg/dl (0.2-1); CREATININE 0.6 mg/dl (0.55-1.3); POTASSIUM 3.6 mmol/L (3.5-5.1); TOT PROT 7.9 g/dl (6.4-8.2)
[2019-05-22] MEDS ORDERED: PIPERACILLIN/TAZOBACTAM 4.5 GM VIAL IVPB ONE (14:24)
[2019-05-22] MEDS ORDERED: VANCOMYCIN 1 GM in D5W (PRE-DOCKED) 1,000 MG/250 ML IVPB ONE (14:27)
--- NOTE | 2019-05-22 15:03 | HP ---
CHIEF COMPLAINT: Abdominal wall cellulitis PCP: Dr. 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 On 05/20, patient presented to the [facility] ED for evaluation of an abdominal wall abscess that had been present for one week. She was observed to have a 2 x 3cm abscess in the 3 o'clock position lateral to the umbilicus. I& D was performed, purulence expressed, wound culture obtained. She was discharged with prescriptions for cephalexin and Bactrim DS and instructions to return to the ED in 48 hours for wound check and packing removal. Patient returned to the ED today with report of increasing redness to the abdomen and an episode of chills yesterday. Admitted for IV antibiotic therapy. ER course was notable for: (1) Glucose 401; corrected Na 134 (2) Zosyn x 1; Vanc x 1g; Unasyn x 1; Novolog 4U x 1 Recent Travel: No PAST MEDICAL HISTORY: Hypertension Hyperlipidemia Non-alcoholic fatty liver disease IDDM Goodwin syndrome/colon cancer Gastritis GERD Recurrent breast abscesses (2018, 2019) PAST SURGICAL HISTORY: Right hemicolectomy 2004 Hysterectomy Cholecystectomy Breast abscesses I&D Social History: Smoking: never Alcohol: no Drugs: no Family History: lives with and 2 children Allergies shrimp Allergy (Severe, Verified 05/22/19 12:23) Swelling No Known Drug Allergies Allergy (Verified 05/22/19 12:23) HOME MEDICATIONS: Home Medications Medication Instructions Recorded Biotin 300 mcg PO DAILY 12/20/18 Gabapentin 100 mg PO TID 12/20/18 Insulin (LOG) Aspart [NovoLOG -] 60 units SQ TID 12/20/18 Insulin Degludec [Tresiba 150 units SQ DAILY 12/20/18 Flextouch U-100] Liraglutide [Victoza -] 40 units SQ DAILY 12/20/18 Loratadine [Claritin] 10 mg PO DAILY 12/20/18 Cephalexin [Keflex] 500 mg PO TID #21 capsule 05/20/19 Sulfamethoxazole/Trimethoprim 1 tab PO BID #14 tablet 05/20/19 [Bactrim Ds -] REVIEW OF SYSTEMS CONSTITUTIONAL: +chills Absent: fever, chills, diaphoresis, generalized weakness, malaise, loss of appetite, weight change HEENT: Absent: rhinorrhea, nasal congestion, throat pain, throat swelling, difficulty swallowing, mouth swelling, ear pain, eye pain, visual changes CARDIOVASCULAR: Absent: chest pain, syncope, palpitations, irregular heart rate, lightheadedness , peripheral edema RESPIRATORY: Absent: cough, shortness of breath, dyspnea with exertion, orthopnea, wheezing, stridor, hemoptysis GASTROINTESTINAL: Absent: abdominal pain, abdominal distension, nausea, vomiting, diarrhea, constipation, melena, hematochezia GENITOURINARY: Absent: dysuria, frequency, urgency, hesitancy, hematuria, flank pain, genital pain MUSCULOSKELETAL: Absent: myalgia, arthralgia, joint swelling, back pain, neck pain SKIN: +abdominal abscess Absent: rash, itching, pallor HEMATOLOGIC/IMMUNOLOGIC: Absent: easy bleeding, easy bruising, lymphadenopathy, frequent infections ENDOCRINE: Absent: unexplained weight gain, unexplained weight loss, heat intolerance, cold intolerance NEUROLOGIC: Absent: headache, focal weakness or paresthesias, dizziness, unsteady gait, seizure, mental status changes, bladder or bowel incontinence PSYCHIATRIC: Absent: anxiety, depression, suicidal or homicidal ideation, hallucinations. PHYSICAL EXAMINATION Vital Signs - 24 hr 05/22/19 12:22 Temperature 98.4 F Pulse Rate 84 Respiratory 20 Rate Blood Pressure 126/87 O2 Sat by Pulse 100 Oximetry (%) GENERAL: Awake, alert, and fully oriented, in no acute distress. HEAD: Normal with no signs of trauma. EYES: Pupils equal, round and reactive to light, extraocular movements intact, sclera anicteric, conjunctiva clear. No lid lag. EARS, NOSE, THROAT: Ears normal, nares patent, oropharynx clear without exudates. Moist mucous membranes. NECK: Normal range of motion, supple without lymphadenopathy, JVD, or masses. LUNGS: Breath sounds equal, clear to auscultation bilaterally. No wheezes, and no crackles. No accessory muscle use. HEART: Regular rate and rhythm, normal S1 and S2 without murmur, rub or gallop. ABDOMEN: 2cm incision LMQ lateral to the umbilicus, no drainage; surrounding area of erythema; area of induration along the superior margin of the incision with tenderness MUSCULOSKELETAL: Normal range of motion at all joints. No bony deformities or tenderness. No CVA tenderness. UPPER EXTREMITIES: 2+ pulses, warm, well-perfused. No cyanosis. No clubbing. No peripheral edema. LOWER EXTREMITIES: 2+ pulses, warm, well-perfused. No calf tenderness. No peripheral edema. NEUROLOGICAL: Cranial nerves II-XII intact. Normal speech. Laboratory Results - last 24 hr 05/22/19 05/22/19 13:21 13:21 WBC 9.5 RBC 4.73 Hgb 14.9 Hct 44.5 MCV 94.1 MCH 31.5 MCHC 33.5 RDW 11.3 L Plt Count 222 MPV 9.0 Absolute Neuts (auto) 6.8 Neutrophils % 70.8 Lymphocytes % 23.2 Monocytes % 5.3 Eosinophils % 0.3 Basophils % 0.4 Sodium 129 L Potassium 3.6 Chloride 98 Carbon Dioxide 23 Anion Gap 8 BUN 8.0 Creatinine 0.6 Est GFR (CKD-EPI)AfAm 129.39 Est GFR (CKD-EPI)NonAf 111.64 Random Glucose 401 H* Calcium 9.0 Total Bilirubin 0.7 AST 42 H ALT 58 Alkaline Phosphatase 290 H Total Protein 7.9 Albumin 3.5 ASSESSMENT/PLAN 43 year-old female with a PMH significant for HTN, HLD, IDDM, 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 Admitted for abdominal wall cellulitis with abscess. Abdominal wall cellulitis with abscess --abscess was cultured on 05/20 (+) NLFGNB --afebrile, no leukocytosis but report of chills; lactic acid pending --Vanc and Zosyn started in ED, will continue --ID to follow --CT abdomen in am --blood cultures pending IDDM --hyperglycemic but no gap --start IV fluids --Levemir 150U --Novolog sliding scale coverage Hypertension --BP stable --on no meds Hyperlipidemia --not on statin therapy Goodwin syndrome Colon cancer --stable, no acute issues FEN Fluids: NS x 1L; then 75mL/hr Electrolytes: replete as indicated Nutrition: diabetic diet DVT prophylaxis: subq lovenox Dispo: continues to require inpatient care. Full code. Visit type - Emergency Visit Emergency Visit: Yes ED Registration Date: 05/22/19 Care time: The patient presented to the Emergency Department on the above date and was hospitalized for further evaluation of their emergent condition. - New Patient This patient is new to me today: Yes Date on this admission: 05/22/19 - Critical Care Critical Care patient: No
[2019-05-22] MEDS ORDERED: VANCOMYCIN 1,000 MG VIAL (RESTRICTED TO ID ONLY) ONE (15:47)
[2019-05-22] MEDS ORDERED: INSULIN REGULAR HUMAN 100 UNITS/ML *VIAL SQ ONE (15:54)
[2019-05-22] MEDS ORDERED: INSULIN (NOVOLOG) ASPART 100 UNITS/ML 10ML VIAL ONE (15:57)
[2019-05-22] MEDS ORDERED: PIPERACILLIN/TAZOB 3.375 GM 3.375 GM in DEXTROSE 5%-WATER - 50 ML IVPB SCH ×2 (18:00→22:00)
[2019-05-22 18:29] VITALS: BMI 29.6
[2019-05-22] MEDS: VANCOMYCIN 1 GRAM (PRE-DOCKED) 1,000 MG/250 ML BAG IVPB SCH (19:28)
[2019-05-22] MEDS ORDERED: SODIUM CHLORIDE 1,000 ML IV STA (19:59)
[2019-05-22] MEDS ORDERED: SODIUM CHLORIDE 1,000 ML IV SCH (21:00)
[2019-05-22] MEDS: GABAPENTIN 100 MG CAPSULE (FP) PO SCH (22:07)
--- NOTE | 2019-05-22 22:16 | PN ---
Progress Note (short form) - Note Progress Note: ID CONSULT DICTATED S/P I&D SOFT TISSUE ABSCESS + WOUND C/S GNR PENDING C/S EMPIRIC ZOSYN/ VANCOMYCIN
[2019-05-22] MEDS: INSULIN (NOVOLOG) ASPART 100 UNITS/ML 10ML VIAL SQ SCH (22:24)
--- NOTE | 2019-05-22 23:49 | CONS ---
DATE OF CONSULTATION: 05/22/2019 INFECTIOUS DISEASE CONSULTATION HISTORY OF PRESENT ILLNESS: The patient is a 43-year-old insulin dependent diabetic who is evaluated for cellulitis of the abdominal wall. He had presented to the emergency room on Monday, May 20, 2019, with soft tissue abscess of the abdominal wall. She underwent incision and drainage and was discharged to complete a course of oral antibiotic therapy with Bactrim and Keflex. She reports that after the discharge she developed worsening erythema at the site as well as chills. She was seen in followup on May 22, 2019, for a wound check. She was noted to have increased erythema as compared to her visit in the emergency room on May 20. Wound culture is growing gram negative rods. Patient is awake and alert. She has no complaints of abdominal pain at the present time. She denies any fever or chills. PAST MEDICAL HISTORY: Positive for insulin dependent diabetes mellitus, history of Goodwin syndrome and colon cancer. PAST SURGICAL HISTORY: Status post right hemicolectomy and hysterectomy. ALLERGIES: No known allergies. Outpatient antibiotic therapy Bactrim and Keflex. LABORATORY DATA: White count 9.5, hematocrit 44.5, platelet count 222, creatinine 0.6. PHYSICAL EXAMINATION: General: On exam, she is awake and alert, she is not acutely toxic appearing. Vital signs: Temperature 98.8, blood pressure 119/79, pulse 80 regular, respirations 18 per minute. HEENT: Sclerae anicteric. Cardiovascular: Heart sounds S1, S2. Lungs: Clear. Abdomen: There is an incisional wound present on the left side lateral to the umbilicus. There is a small area of erythema which is ill defined, approximately 2 x 5 cm. It is slightly indurated, nontender. No expressible pus, no crepitus or fluctuance. Extremities: Negative for edema. IMPRESSION: 1. Status post incision and drainage soft tissue abscess of the abdomen. 2. Positive wound culture for gram-negative rods. 3. Insulin dependent diabetes mellitus. Await final culture results. Continue empiric antibiotic coverage with Zosyn and vancomycin. Local wound care. Will follow. Thank you for this kind referral. GENEVA SHAH M.D. PENNIE/[id number]
[2019-05-23] MEDS ORDERED: DEXTROSE 5%-WATER - 50 ML IVPB ONE ×2 (00:04→09:50)
[2019-05-23] MEDS ORDERED: PIPERACILLIN/TAZOBACTAM 3.375 GM VIAL IVPB ONE ×2 (00:04→09:50)
[2019-05-23] MEDS: PIPERACILLIN/TAZOB 3.375 GM 3.375 GM in DEXTROSE 5%-WATER - 50 ML IVPB SCH ×2 (01:29→09:57)
[2019-05-23] MEDS ORDERED: INSULIN (LEVEMIR) 100 UNITS/ML UNITS SQ SCH (06:00)
[2019-05-23] MEDS: GABAPENTIN 100 MG CAPSULE (FP) PO SCH (06:05)
[2019-05-23] MEDS: VANCOMYCIN 1 GRAM (PRE-DOCKED) 1,000 MG/250 ML BAG IVPB SCH (06:05)
[2019-05-23] MEDS: INSULIN (NOVOLOG) ASPART 100 UNITS/ML 10ML VIAL SQ SCH ×2 (07:00→11:30)
[2019-05-23 07:45] LABS: BASO % 0.6 % (0-2.0); EOS % 1.2 % (0-4.5); HEMATOCRIT 40.5 % (32.4-45.2); HEMOGLOBIN 13.5 GM/dl (10.7-15.3); LYMPH % 25.3 % (8-40); MCH 31.2 pg (25.7-33.7); MCHC 33.4 g/dl (32.0-36.0); MEAN CELL VOLUME 93.3 fl (80-96); MEAN PLT VOLUME 8.8 fl (7.5-11.1); MONO % 4.8 % (3.8-10.2); NEUT % 68.1 % (42.8-82.8); PLATELET COUNT 224 K/MM3 (134-434); RBC 4.33 M/mm3 (3.60-5.2); WHITE BLOOD COUNT 7.1 K/mm3 (4.0-10.8)
[2019-05-23 08:22] LABS: ALBUMIN 2.9 g/dl (3.4-5.0); BILIRUBIN,TOTAL 0.8 mg/dl (0.2-1); CALCIUM 8.4 mg/dl (8.5-10); CREATININE 0.6 mg/dl (0.55-1.3); MAGNESIUM 1.6 mg/dL (1.8-2.4); POTASSIUM 3.8 mmol/L (3.5-5.1); TOT PROT 6.5 g/dl (6.4-8.2)
[2019-05-23] MEDS ORDERED: MAGNESIUM SULF 50% (8.12 MEQ/2 ML-1 GM VIAL) IVPB ONE (09:30)
[2019-05-23] MEDS ORDERED: POTASSIUM CHLORIDE TABS 20 MEQ TABLET.ER (FP) PO ONE (10:00)
[2019-05-23] MEDS ORDERED: ENOXAPARIN NA (PORCINE) 40 MG/0.4 ML DISP.SYRIN SQ SCH (10:00)
[2019-05-23] MEDS ORDERED: LIRAGLUTIDE 0.6 MG/0.1 ML PEN.INJCTR SQ SCH (10:00)
[2019-05-23] MEDS ORDERED: LORATADINE 10 MG TABLET PO SCH (10:00)
--- NOTE | 2019-05-23 10:59 | PN ---
Progress Note, Physician History of Present Illness: AWAKE SUPINE IN BED NO COMPLAINTS NO C/O ABDOMINAL PAIN NO FEVER/ CHILLS - Current Medication List Current Medications: Active Medications Enoxaparin Sodium (Lovenox -) 40 mg SQ DAILY [facility] Last Admin: 05/23/19 09:56 Dose: 40 mg Gabapentin (Neurontin -) 100 mg PO TID [facility] Last Admin: 05/23/19 06:05 Dose: 100 mg Piperacillin Sod/Tazobactam (Sod 3.375 gm/ Dextrose) 50 mls @ 100 mls/hr IVPB Q8H-IV [facility]; Protocol Last Admin: 05/23/19 09:57 Dose: 100 mls/hr Vancomycin HCl (Vancomycin (Pre-Docked)) 1,000 mg in 250 mls @ 166.667 mls/hr IVPB Q12H [facility]; Protocol Last Admin: 05/23/19 06:05 Dose: 166.667 mls/hr Sodium Chloride (Normal Saline -) 1,000 mls @ 75 mls/hr IV ASDIR [facility] Last Admin: 05/22/19 21:30 Dose: 75 mls/hr Insulin Aspart (Novolog Vial) 0 units SQ ACHS [facility]; Protocol Last Admin: 05/23/19 07:00 Dose: 6 units Insulin Detemir (Levemir Vial) 150 units SQ HS [facility] Loratadine (Claritin -) 10 mg PO DAILY [facility] Last Admin: 05/23/19 09:56 Dose: 10 mg - Objective Vital Signs: Vital Signs Temperature 98.0 F 05/23/19 04:00 Pulse Rate 69 05/23/19 04:00 Respiratory Rate 16 05/23/19 07:59 Blood Pressure 110/69 05/23/19 04:00 O2 Sat by Pulse Oximetry (%) 97 05/23/19 07:59 Constitutional: Yes: No Distress Cardiovascular: Yes: Regular Rate and Rhythm, S1, S2 Respiratory: Yes: CTA Bilaterally Gastrointestinal: Yes: Normal Bowel Sounds, Soft, Other (ERYTHEMA ABDOMINAL WALL NEARLY ALL RESOLVED; SURGICAL WOUND NO EXPESSIBLE DRAINAGE). No: Tenderness Labs: CBC, BMP 05/23/19 07:38 05/23/19 07:38 Assessment/Plan S/P I&D SOFT TISSUE ABSCESS ABDOMINAL WALL UNCONTROLLED DM SUBSTITUTE LEVAQUIN 500MG PO QD X 7D OUTPATIENT FOLLOW UP
--- NOTE | 2019-05-23 11:02 | DS ---
Physical Exam: SUBJECTIVE: Patient seen and examined OBJECTIVE: Vital Signs Period Temp Pulse Resp BP Sys/Nieves Pulse Ox Last 24 Hr 98.0 F-98.8 F 69-84 16-20 110-126/66-87 95-100 PHYSICAL EXAM GENERAL: The patient is awake, alert, and fully oriented, in no acute distress. HEAD: Normal with no signs of trauma. EYES: PERRL, extraocular movements intact, sclera anicteric, conjunctiva clear. ENT: Ears normal, nares patent, oropharynx clear without exudates, moist mucous membranes. NECK: Trachea midline, full range of motion, supple. LUNGS: Breath sounds equal, clear to auscultation bilaterally, no wheezes, no crackles, no accessory muscle use. HEART: Regular rate and rhythm, S1, S2 without murmur, rub or gallop. ABDOMEN: Soft, nontender, nondistended, normoactive bowel sounds, no guarding, no rebound, no hepatosplenomegaly, no masses. EXTREMITIES: 2+ pulses, warm, well-perfused, no edema. NEUROLOGICAL: Cranial nerves II through XII grossly intact. Normal speech, gait not observed. PSYCH: Normal mood, normal affect. SKIN: Warm, dry, normal turgor, no rashes or lesions noted. LABS Laboratory Results - last 24 hr 05/22/19 05/22/19 05/22/19 13:21 13:21 20:45 WBC 9.5 RBC 4.73 Hgb 14.9 Hct 44.5 MCV 94.1 MCH 31.5 MCHC 33.5 RDW 11.3 L Plt Count 222 MPV 9.0 Absolute Neuts (auto) 6.8 Neutrophils % 70.8 Lymphocytes % 23.2 Monocytes % 5.3 Eosinophils % 0.3 Basophils % 0.4 Sodium 129 L Potassium 3.6 Chloride 98 Carbon Dioxide 23 Anion Gap 8 BUN 8.0 Creatinine 0.6 Est GFR (CKD-EPI)AfAm 129.39 Est GFR (CKD-EPI)NonAf 111.64 POC Glucometer Random Glucose 401 H* Lactic Acid 0.9 Calcium 9.0 Magnesium Total Bilirubin 0.7 AST 42 H ALT 58 Alkaline Phosphatase 290 H Total Protein 7.9 Albumin 3.5 Urine HCG, Qual 05/22/19 05/22/19 05/23/19 20:45 22:16 06:36 WBC RBC Hgb Hct MCV MCH MCHC RDW Plt Count MPV Absolute Neuts (auto) Neutrophils % Lymphocytes % Monocytes % Eosinophils % Basophils % Sodium Potassium Chloride Carbon Dioxide Anion Gap BUN Creatinine Est GFR (CKD-EPI)AfAm Est GFR (CKD-EPI)NonAf POC Glucometer 280 276 Random Glucose Lactic Acid Calcium Magnesium Total Bilirubin AST ALT Alkaline Phosphatase Total Protein Albumin Urine HCG, Qual Negative 05/23/19 05/23/19 07:38 07:38 WBC 7.1 RBC 4.33 Hgb 13.5 Hct 40.5 MCV 93.3 MCH 31.2 MCHC 33.4 RDW 11.0 L Plt Count 224 MPV 8.8 Absolute Neuts (auto) 4.9 Neutrophils % 68.1 Lymphocytes % 25.3 Monocytes % 4.8 Eosinophils % 1.2 Basophils % 0.6 Sodium 132 L Potassium 3.8 Chloride 104 Carbon Dioxide 22 Anion Gap 6 L BUN 9.0 Creatinine 0.6 Est GFR (CKD-EPI)AfAm 129.39 Est GFR (CKD-EPI)NonAf 111.64 POC Glucometer Random Glucose 300 H Lactic Acid Calcium 8.4 L Magnesium 1.6 L Total Bilirubin 0.8 AST 50 H ALT 49 Alkaline Phosphatase 235 H D Total Protein 6.5 Albumin 2.9 L Urine HCG, Qual HOSPITAL COURSE: Date of Admission:05/22/19 Date of Discharge: 05/23/19 Pre hospital course 43 year-old female with a PMH significant for HTN, HLD, IDDM, 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 On 05/20, patient presented to the [place] ED for evaluation of an abdominal wall abscess that had been present for one week. She was observed to have a 2 x 3cm abscess in the 3 o'clock position lateral to the umbilicus. I& D was performed, purulence expressed, wound culture obtained. She was discharged with prescriptions for cephalexin and Bactrim DS and instructions to return to the ED in 48 hours for wound check and packing removal. Patient returned to the ED on 05/22 with report of increasing redness to the abdomen and an episode of chills yesterday. Admitted for IV antibiotic therapy. ER course (1) Glucose 401; corrected Na 134 (2) Zosyn x 1; Vanc x 1g; Unasyn x 1; Novolog 4U x 1 Subsequent hospital course Abdominal wall cellulitis with abscess --abscess was cultured on 05/20 (+) Serratia (+) MSSA both sensitive to levofloxacin --wound was clean, no drainage during this admission; mild erythema surrounding wound --treated with Vanc and Zosyn while inpatient, discharged on PO levofloxacin --patient has appointment next week with PCP IDDM --admitted with hyperglycemia but no gap --treated with IV fluids, Levemir 150U, and Novolog sliding scale coverage Hypertension --BP stable --on no meds Hyperlipidemia --not on statin therapy Goodwin syndrome Colon cancer --stable, no acute issues Minutes to complete discharge: 35 Discharge Summary Reason For Visit: CELLULITIS OF ABDOMINAL WALL/HYPERGLYCEMIA Current Active Problems Abdominal wall cellulitis (Acute) Abscess (Acute) Hyperglycemia (Acute) Condition: Improved - Instructions Diet, Activity, Other Instructions: A prescription has been sent to your pharmacy for levofloxacin which is an antibiotic. Take this medication as directed and be sure to finish all the medication. Do not engage in any running or impact exercise/sports while on this medication as it can increase the likelihood of tendon rupture. You indicated you have a followup appointment with Dr. Patel, your primary care provider, on Tuesday. Keep your wound clean and dry. You can wash it with soap and water. Let is dry completely. Then cover with dry sterile gauze. Return to the emergency department for any new or worsening symptoms. Referrals: Caleb Patel MD [Non Staff, Medical] - Disposition: HOME - Home Medications Comprehensive Discharge Medication List: Ambulatory Orders Biotin 300 mcg PO DAILY 12/20/18 Gabapentin 100 mg PO TID 12/20/18 Insulin (LOG) Aspart [NovoLOG -] 60 units SQ TID 12/20/18 Insulin Degludec [Tresiba Flextouch U-100] 150 units SQ DAILY 12/20/18 Liraglutide [Victoza -] 40 units SQ DAILY 12/20/18 Loratadine [Claritin] 10 mg PO DAILY 12/20/18 Cephalexin [Keflex] 500 mg PO TID #21 capsule 05/20/19 Sulfamethoxazole/Trimethoprim [Bactrim Ds -] 1 tab PO BID #14 tablet 05/20/19 This patient is new to me today: No Emergency Visit: Yes ED Registration Date: 05/22/19 Care time: The patient presented to the Emergency Department on the above date and was hospitalized for further evaluation of their emergent condition. Critical Care patient: No - Discharge Referral Referred to [facility] No
[2019-05-23] MEDS ORDERED: INSULIN (NOVOLOG) ASPART 100 UNITS/ML 10ML VIAL ONE (12:14)
[2019-05-23 13:51] VITALS: BP 106/69; PULSE 77; TEMP 98.4
== END 2019-05-23 13:55 | disposition home or self-care (01) | DRG 603 ==
LOC: FER 12:21 → FM/S 14:40
PROVIDERS: ATTEND Nurse Practitioner Acute Care
DX: L03.311 Cellulitis of abdominal wall (principal); L02.211 Cutaneous abscess of abdominal wall; E11.65 Type 2 diabetes mellitus with hyperglycemia; I10 Essential (primary) hypertension; E78.5 Hyperlipidemia, unspecified; Z85.038 Personal history of other malignant neoplasm of large intestine; Z79.4 Long term (current) use of insulin; K76.0 Fatty (change of) liver, not elsewhere classified; Z90.49 Acquired absence of other specified parts of digestive tract
CPT/HCPCS: 36415; 80053; 82962; 83605; 83735; 84703; 85025; 87040; 87086; 99282-25; J0875; J7030

== ENCOUNTER 2022-05-13 13:50 | Emergency (ER) | payer MEDICARE, OTHER ==
[2022-05-13 14:05] VITALS: BP 130/89; PULSE 83; TEMP 98.2; BMI 27.1
[2022-05-13 15:09] LABS: HEMATOCRIT 44.4 % (32.4-45.2); HEMOGLOBIN 15.7 G/dL (10.7-15.3); MCH 31.8 pg (25.7-33.7); MCHC 35.4 g/dl (32.0-36.0); MEAN CELL VOLUME 89.8 fl (80-96); MEAN PLT VOLUME 8.6 fl (7.5-11.1); PLATELET COUNT 184.5 10^3/uL (134-434); RBC 4.94 10^6/uL (3.60-5.2); RDW 13.3 % (11.6-15.6); WHITE BLOOD COUNT 7.8 10^3/uL (4.0-10.8)
[2022-05-13 15:11] LABS: BILIRUBIN,TOTAL 0.6 mg/dl (0.2-1); CALCIUM 9.9 mg/dl (8.5-10); CREATININE 0.6 mg/dl (0.55-1.3); TOT PROT 7.8 g/dl (6.4-8.2)
[2022-05-13 15:14] LABS: PLATELET ESTIMATE ADEQUATE
== END 2022-05-13 16:43 | disposition home or self-care (01) ==
LOC: FER 13:50
DX: S83.8X1A Sprain of other specified parts of right knee, initial encounter (principal); X50.0XXA Overexertion from strenuous movement or load, initial encounter
CPT/HCPCS: 36415; 73562-TC-RT-FY; 80053; 82962; 84550; 85025; 93971-TC; 99285-25

== ENCOUNTER 2022-07-16 06:22 | Day surgery (SDC) | payer OTHER ==
[2022-06-10 14:13] VITALS: BMI 27.0
[2022-07-16] MEDS ORDERED: LIDOCAINE HCL/PF 2% SDV 5ML VIAL ONE (07:06)
[2022-07-16] MEDS ORDERED: ceFAZolin SODIUM 1 GM VIAL ONE (07:06)
[2022-07-16] MEDS ORDERED: ONDANSETRON 4 MG/2 ML VIAL ONE ×2 (07:06→08:30)
[2022-07-16] MEDS ORDERED: DEXAMETHASONE SOD PHOSPHATE 4 MG/1 ML VIAL ONE (07:06)
[2022-07-16] MEDS ORDERED: SODIUM CHLORIDE 0.9% P/F 10 ML VIAL IJ ONE (07:06)
[2022-07-16] MEDS ORDERED: PROPOFOL 20 ML ONE (07:06)
[2022-07-16] MEDS ORDERED: KETOROLAC TROMETHAMINE 30 MG/1 ML VIAL ONE (07:06)
[2022-07-16] MEDS ORDERED: MIDAZOLAM HCL 2 MG/2 ML SINGLE DOSE VIAL ONE (07:07)
[2022-07-16] MEDS ORDERED: SUCCINYLCHOLINE CHLORIDE 200 MG/10 ML SYRINGE ONE (07:07)
[2022-07-16] MEDS ORDERED: EPINEPHrine 1:1,000 1,000 MCG/ML ML ONE (07:08)
[2022-07-16] MEDS ORDERED: BUPIVACAINE HCL/PF 2.5 MG/ML - 30 ML VIAL IJ ONE (07:08)
[2022-07-16] MEDS ORDERED: ONDANSETRON 4 MG/2 ML VIAL IVPUSH PRN (07:36)
[2022-07-16] MEDS ORDERED: oxyCODONE HCL 5 MG TABLET PO PRN ×2 (07:36)
[2022-07-16] MEDS ORDERED: LACTATED RINGERS SOLUTION 1,000 ML IV SCH (07:45)
[2022-07-16] MEDS ORDERED: BUPIVACAINE HCL/PF 0.25% (2.5MG/ML) 10 ML VIAL IJ ONE (08:20)
[2022-07-16] MEDS ORDERED: FENTANYL CITRATE/PF 50 MCG/ML VIAL ONE (08:30)
[2022-07-16] MEDS ORDERED: oxyCODONE HCL 10 MG SUSTAINED ACTING TABLET ONE (09:39)
[2022-07-16 09:59] VITALS: RESP 20; TEMP 97.7
[2022-07-16 10:22] VITALS: BP 120/74; PULSE 82
== END 2022-07-16 09:35 | disposition home or self-care (01) ==
LOC: FASU 06:22
PROVIDERS: ATTEND Orthopaedic Surgery
PROC: 0SBC4ZZ Excision of Right Knee Joint, Percutaneous Endoscopic Approach (ICD-10-PCS; 2022-07-16)
PROC: 0SBC4ZZ Excision of Right Knee Joint, Percutaneous Endoscopic Approach (ICD-10-PCS; principal; 2022-07-16 08:01)
DX: S83.241A Other tear of medial meniscus, current injury, right knee, initial encounter (principal); S83.8X1A Sprain of other specified parts of right knee, initial encounter; M65.861 Other synovitis and tenosynovitis, right lower leg; X58.XXXA Exposure to other specified factors, initial encounter; Y93.9 Activity, unspecified; Y92.9 Unspecified place or not applicable
CPT/HCPCS: 82962; 94760

== ENCOUNTER 2022-12-13 09:56 | Emergency (ER) | payer OTHER ==
[2022-12-13 10:28] VITALS: BP 126/74; PULSE 77; RESP 16; TEMP 98.6; BMI 25.2
[2022-12-13] MEDS ORDERED: IBUPROFEN 600 MG TABLET (FP) PO ONE ×2 (11:03→11:05)
[2022-12-13] MEDS ORDERED: LIDOCAINE 5% TOPICAL PATCH TP ONE (11:03)
[2022-12-13] MEDS ORDERED: METHOCARBAMOL 500 MG TABLET PO ONE (11:05)
[2022-12-13] MEDS ORDERED: LIDOCAINE 5% TOPICAL PATCH ONE (11:05)
[2022-12-13] MEDS ORDERED: METHOCARBAMOL 500 MG TABLET ONE (11:12)
[2022-12-13] MEDS ORDERED: LIDOCAINE PATCH REMOVAL MC SCH (22:00)
== END 2022-12-13 11:22 | disposition home or self-care (01) ==
LOC: FER 09:56
DX: S46.912A Strain of unspecified muscle, fascia and tendon at shoulder and upper arm level, left arm, initial encounter (principal); S16.1XXA Strain of muscle, fascia and tendon at neck level, initial encounter; X50.0XXA Overexertion from strenuous movement or load, initial encounter
CPT/HCPCS: 93005; 99283-25

== ENCOUNTER 2023-04-23 19:42 | Emergency (ER) | payer OTHER ==
[2023-04-23 19:51] VITALS: BP 141/89; PULSE 88; RESP 16; TEMP 98.8; BMI 25.2
[2023-04-23] MEDS ORDERED: ACETAMINOPHEN 325 MG TABLET (FP) PO ONE (20:33)
[2023-04-23] MEDS ORDERED: ACETAMINOPHEN 325 MG TABLET (FP) ONE (20:35)
== END 2023-04-23 22:00 | disposition home or self-care (01) ==
LOC: FER 19:42
DX: M25.531 Pain in right wrist (principal); R22.31 Localized swelling, mass and lump, right upper limb; S63.501A Unspecified sprain of right wrist, initial encounter; W19.XXXA Unspecified fall, initial encounter; Y92.009 Unspecified place in unspecified non-institutional (private) residence as the place of occurrence of the external cause
CPT/HCPCS: 73110-TC-RT-FY; 73130-TC-RT-FY; 99283-25